=== PATIENT | male | born 1965 | race African-American/Black ===

== ENCOUNTER 2016-10-08 08:49 | Emergency (ER) | payer MEDICARE, SELFPAY ==
[2016-10-08] MEDS ORDERED: Ketorolac Tromethamine 60 MG/2 ML VIAL ONE (09:25)
--- NOTE | 2016-10-08 09:34 | ERRECORD ---
[facility] EMERGENCY RECORD HPI NECK PAIN (09:15 SHAN) CHIEF COMPLAINT: Patient presents for evaluation of neck injury, Patient presents for evaluation of patient with [facility] recurrent left neck pain. radiates down left arm. clearly related to neck pain and motion of neck. no chest component. pain is sharp and lightening like. has chf, cad, copd, gout. HISTORIAN: History provided by patient, History provided by patient's spouse. TIME COURSE: Gradual onset of symptoms. EXACERBATED BY: Patient's condition exacerbated by extension, Patient's condition exacerbated by flexion, Patient's condition exacerbated by movement of head, Patient's condition exacerbated by rotation. RELIEVED BY: Patient's condition relieved by nothing. ROS (09:17 SHAN) CONSTITUTIONAL: Negative constitutional review of systems, Historian denies chills, denies fever. EYES: Negative eye review of systems. ENT: Negative ears, nose, throat review of systems. CARDIOVASCULAR: Negative cardiovascular review of systems, Historian denies chest pain, denies palpitations. RESPIRATORY: Negative respiratory review of systems, Historian denies cough, denies shortness of breath. GI: Negative gastrointestinal review of systems, Historian denies abdominal pain, denies constipation, denies diarrhea. MUSCULOSKELETAL: Negative musculoskeletal review of systems. SKIN: Negative skin review of systems. NEUROLOGIC: Negative neurologic review of systems. ENDOCRINE: Negative endocrine review of systems. HEMO/LYMPHATIC: Normal hematologic/lymphatic system review. PSYCHIATRIC: Negative psychiatric review of systems. NOTES: All other ROS is negative except as listed in HPI. PAST MEDICAL HISTORY MEDICAL HISTORY: Flu vaccine up to date, Tetanus immunization up to date, Pneumococcal vaccine up to date, Past medical history includes cardiac history, coronary artery disease, congestive heart failure, Past medical history includes history of diabetes, Type II, on insulin, Past medical history includes genitourinary history, ESRD., Past medical history includes history of hyperlipidemia, high cholesterol, Past medical history includes history of hypertension, which has been treated, Past medical history includes pulmonary disease, chronic obstructive pulmonary disease, Past medical history includes cardiac history, congestive heart failure, Notes: Notes: CHRONIC BACK PAIN, Flu vaccine up to date, Tetanus immunization up to date, Pneumococcal vaccine up to date, Past medical history includes cardiac history, coronary artery disease, Past medical history includes history of diabetes, Type II, &a-1R&a+25V*p+0X*r0141T*c202B*c15G*c2P*p-0X&a-25V&a+1R Name: Giovany Heath : 1965 M50 MedRec: [id number] AcctNum: [id number] Prepared: SatOct 08, 2016 10:28 by Interface Page 1 of 4 pMD [facility] EMERGENCY RECORD Past medical history includes history of hyperlipidemia, high cholesterol, Past medical history includes history of hypertension, which has been treated, Notes: morbid obesity, Past medical history includes cardiac history, coronary artery disease, Past medical history includes history of diabetes, Type II, on insulin, Past medical history includes history of hyperlipidemia, high cholesterol, Past medical history includes history of hypertension, which has been treated, CHRONIC BACK PAIN, CHRONIC PAIN TO BILAT LEGS, Past medical history includes pulmonary disease, chronic obstructive pulmonary disease, Past medical history includes renal disease, end stage renal disease. (09:11 SFRE) MALE SURGICAL HISTORY: Patient has no surgical history. (09:11 SFRE) PSYCHIATRIC HISTORY: [. (09:11 SFRE) SOCIAL HISTORY: Patient denies alcohol use, Patient denies drug use, Patient is a former tobacco user, smoked cigarettes, Lives at home, with family. (09:11 SFRE) NOTES: I have reviewed and agree with the PMH/PSxH/FamHx/SocHx obtained by the nurse. (09:17 SHAN) KNOWN ALLERGIES No Known Allergies (Unconfirmed) No Known Drug Allergies: Source: Patient CURRENT MEDICATIONS No recorded medications VITAL SIGNS (08:59 SFRE) VITAL SIGNS: BP: 136/76, Pulse: 86, Resp: 18, Temp: 98.1 (Tympanic), Pain: 7 (Stabbing), O2 sat: 95 on Room Air, Time: 10/08/2016 08:59. PHYSICAL EXAM (09:17 SHAN) CONSTITUTIONAL: Vital signs reviewed, Patient appears non toxic, Patient alert and oriented to person, place and time, Pt is in no apparent distress. HEAD: Head exam included findings of head atraumatic, normocephalic. EYES: Eye exam included findings of eyelids normal to inspection, Pupils equally round and reactive to light, Extraocular muscles intact. ENT: ENT exam normal, Nose exam normal, no nasal deformity, no bleeding from nares, Pharynx exam normal, Mouth exam normal, mucous membranes moist. NECK: Neck exam included findings of normal range of motion, Trachea midline. RESPIRATORY CHEST: Respiratory and chest exam normal, Breath sounds clear, No wheezing, No rales, Chest exam included findings of chest movement symmetrical, Chest expansion equal. CARDIOVASCULAR: Cardiovascular assessment normal, Cardiovascular &a-1R&a+25V*p+0X*x9960J*c202B*c15G*c2P*p-0X&a-25V&a+1R Name: Giovany Heath : 1965 M50 MedRec: [id number] AcctNum: [id number] Prepared: SatOct 08, 2016 10:28 by Interface Page 2 of 4 pMD [facility] EMERGENCY RECORD exam included findings of heart rate regular rate and rhythm, Heart sounds normal. ABDOMEN MALE: Abdominal exam included findings of abdomen nontender, Bowel sounds normal, no mass, no pulsatile masses, no peritoneal signs, no rigidity, no guarding, no rebound. BACK: Back exam included findings of normal inspection, range of motion normal, no costovertebral angle tenderness. UPPER EXTREMITY: Upper extremity exam included findings of inspection normal, Range of motion normal. LOWER EXTREMITY: Lower extremity exam included findings of inspection normal, Range of motion normal. NEURO: Neuro exam findings include patient oriented to person, place and time, Speech normal, no focal motor deficits, no focal sensory deficits. neck pain with motion. SKIN: Skin exam included findings of skin warm, dry, and normal in color. LYMPHATIC: Lymphatic exam normal. PSYCHIATRIC: Psychiatric exam included findings of patient oriented to person place and time, Normal affect. MEDICATION ADMINISTRATION SUMMARY Drug Name: ketorolac intramuscular, Dose Ordered: 60 mg, Route: Intramuscular, Status: Given, Time: 09:28 10/08/2016, Detailed record available in Medication Service section. DOCTOR NOTES (09:20 SHAN) TEXT: Adult male with chf, cad, diabetes type 2, obesity, hypertension, gout, copd. From medication list is well treated medically. The pain today is recurrent and clearly a cervical radiculopathy. Discussed with him that ideally should have mri and this is not available acutely. He relates that he has had a shot and done well in the past. This pain does not feel at all like his angina and he has had two prior heart caths. Discussed options. PROBLEM LIST No recorded problems DIAGNOSIS (: [facility]) FINAL: PRIMARY: cervical radiculopathy. PRESCRIPTION (: [facility]) Tylenol-Codeine #3: TABLET : 300 mg-30 mg : ORAL : Quantity: 1 Unit: tab(s) Route: ORAL Schedule: every 4 hours prn Dispense: 30 Unit: tab(s) May substitute. Refills: No Refills . NOTES: may cause stomach upset (take with food), constipation, drousiness, and is somewhat habit forming No Refills. &a-1R&a+25V*p+0X*o6728H*c202B*c15G*c2P*p-0X&a-25V&a+1R Name: Giovany E : 1965 1 MedRec: [id number] AcctNum: [id number] Prepared: SatOct 08, 2016 10:28 by Interface Page 3 of 4 pMD [facility] EMERGENCY RECORD DISPOSITION PATIENT: Disposition Type: Discharge, Disposition: *Discharge Home. (: [place]) Patient left the department. (10: TRISTA) Morales: TRISTA=JESSEE Fraser, Daria GRIMES=MD Miguel, Keyur &a-1R&a+25V*p+0X*j1753E*c202B*c15G*c2P*p-0X&a-25V&a+1R Name: Giovany Heath : 1965 [facility] MedRec: [id number] AcctNum: [id number] Prepared: SatOct 08, 2016 10:28 by Interface Page 4 of 4 pMD [facility]
--- NOTE | 2016-10-08 09:38 | PICIS ---
[facility] EMERGENCY RECORD TRIAGE (SatOct 08, 2016 09:00 SFRE) TRIAGE NOTES: NECK PAIN SINCE SATURDAY AND OUT OF PAIN MEDICINE. (SatOct 08, 2016 09:00 SFRE) PATIENT: NAME: Giovany Heath, AGE: 50, GENDER: male, : Sun 1965, TIME OF GREET: SatOct 08, 2016 08:49, PREFERRED LANGUAGE: Telugu, ETHNICITY: Not or , FALL RISK: NO, ECODE BILLING MAP: [facility], SSN: [id number], Zip Code: [address], KG WEIGHT: [phone], PHONE: , , , PERSON ID: [id number], PCP: roney. (SatOct 08, 2016 09:00 SFRE) COMPLAINT: NECK & LT ARM PAIN. (SatOct 08, 2016 09:00 SFRE) ADMISSION: URGENCY: 4 Non Urgent, ADMISSION SOURCE: Home, TRANSPORT: Walk-in, BED: ED -05. (SatOct 08, 2016 09:00 SFRE) PROVIDERS: TRIAGE NURSE: Daria Fraser RN. (SatOct 08, 2016 09:00 SFRE) VITAL SIGNS: BP 136/76, Pulse 86, Resp 18, Temp 98.1, (Tympanic), Pain 7, (Stabbing), O2 Sat 95, on Room Air, Time 10/08/2016 08:59. (08:59 SFRE) PREVIOUS VISIT ALLERGIES: No Known Drug Allergies. (SatOct 08, 2016 09:00 SFRE) No Known Drug Allergies. (09:11 SFRE) KNOWN ALLERGIES No Known Allergies (Unconfirmed) No Known Drug Allergies: Source: Patient CURRENT MEDICATIONS No recorded medications VITAL SIGNS (08:59 SFRE) VITAL SIGNS: BP: 136/76, Pulse: 86, Resp: 18, Temp: 98.1 (Tympanic), Pain: 7 (Stabbing), O2 sat: 95 on Room Air, Time: 10/08/2016 08:59. NURSING ASSESSMENT: NECK (09:30 SFRE) CONSTITUTIONAL: Patient arrives ambulatory, Gait steady, History obtained from patient, Patient appears, in distress due to pain, Patient cooperative, Patient alert, Oriented to person, place and time, Skin warm, Skin dry, Skin normal in color, Mucous membranes pink, Mucous membranes moist, Patient is well-groomed, Patient complains of NECK PAIN. PAIN: stabbing pain, to the left lateral neck, RADIATES UP LEFT LATERAL SIDE OF HEAD AND DOWN LEFT ARM, Pain radiates, to the left arm, Onset of pain 10/06/2016, on a scale 0-10 patient rates pain as 7, DENIES INJURY, REPORTS HE HAS HAD IT BEFORE AND IS OUT OF HIS PAIN MEDICATION, Pain exacerbated by, ROM, Nothing has been tried to alleviate the pain. NECK: Neck assessment findings include trachea midline, Pain with range of motion. &a-1R&a+25V*p+0X*s1646X*c202B*c15G*c2P*p-0X&a-25V&a+1R Name: Giovany Heath : 1965 M50 MedRec: [id number] AcctNum: [id number] Prepared: SatOct 08, 2016 10:34 by Interface Page 1 of 5 pMD [facility] EMERGENCY RECORD RESPIRATORY/CHEST: Breath sounds clear, Respiratory assessment findings include respiratory effort easy, Respirations regular, Conversing normally, Neck and chest exam findings include trachea midline, Chest expansion equal, Chest movement symmetrical. SAFETY: Side rails up, Cart/Stretcher in lowest position, Family at bedside, Call light within reach, Hospital ID band on. NURSING PROCEDURE: DISCHARGE NOTE (10:04 SFRE) DISCHARGE: Patient discharged to home, ambulating with cane, family driving, accompanied by //partner, Summary of Care printed/ provided, Patient requested and was provided an electronic copy of Discharge Instructions, Discharge instructions given to patient, Simple or moderate discharge teaching performed, by JESSEE QUINN, F/U WITH PCP. RX DIRECTED. RETURN TO ED NEEDED FOR NEW/CONCERNING OR WORSENING SYMPTOMS., Prescriptions given and instructions on side effects given, Name of prescription(s) given: T3, Above person(s) verbalized understanding of discharge instructions and follow-up care. MEDICATION ADMINISTRATION SUMMARY Drug Name: ketorolac intramuscular, Dose Ordered: 60 mg, Route: Intramuscular, Status: Given, Time: 09:28 10/08/2016, Detailed record available in Medication Service section. MEDICATION SERVICE () ketorolac intramuscular: Order: ketorolac intramuscular (ketorolac tromethamine) - Dose: 60 mg : Intramuscular Schedule: Now Ordered by: Keyur Rivera MD Entered by: Keyur Rivera MD SatOct 08, 2016 09:20 Documented as given by: Daria Fraser RN SatOct 08, 2016 09:28 Patient, Medication, Dose, Route and Time verified prior to administration. IM medication, Amount given: 60MG, Medication administered to left hip, Patient appears Awake and alert- acceptable, Correct patient, time, route, dose and medication confirmed prior to administration, Patient advised of actions and side-effects prior to administration, Allergies confirmed and medications reviewed prior to administration, Patient in position of comfort, Side rails up, Cart in lowest position, Family at bedside. HPI NECK PAIN () CHIEF COMPLAINT: Patient presents for evaluation of neck injury, Patient presents for evaluation of patient with [facility] left neck pain. radiates down left arm. clearly related to neck pain and motion of neck. no chest component. pain is sharp and lightening like. has chf, cad, copd, gout. HISTORIAN: History provided by patient, History provided by patient's spouse. TIME COURSE: Gradual onset of &a-1R&a+25V*p+0X*c4210V*c202B*c15G*c2P*p-0X&a-25V&a+1R Name: Giovany Heath : 1965 M50 MedRec: [id number] AcctNum: [id number] Prepared: SatOct 08, 2016 10:34 by Interface Page 2 of 5 pMD [facility] EMERGENCY RECORD symptoms. EXACERBATED BY: Patient's condition exacerbated by extension, Patient's condition exacerbated by flexion, Patient's condition exacerbated by movement of head, Patient's condition exacerbated by rotation. RELIEVED BY: Patient's condition relieved by nothing. ROS (: [facility]) CONSTITUTIONAL: Negative constitutional review of systems, Historian denies chills, denies fever. EYES: Negative eye review of systems. ENT: Negative ears, nose, throat review of systems. CARDIOVASCULAR: Negative cardiovascular review of systems, Historian denies chest pain, denies palpitations. RESPIRATORY: Negative respiratory review of systems, Historian denies cough, denies shortness of breath. GI: Negative gastrointestinal review of systems, Historian denies abdominal pain, denies constipation, denies diarrhea. MUSCULOSKELETAL: Negative musculoskeletal review of systems. SKIN: Negative skin review of systems. NEUROLOGIC: Negative neurologic review of systems. ENDOCRINE: Negative endocrine review of systems. HEMO/LYMPHATIC: Normal hematologic/lymphatic system review. PSYCHIATRIC: Negative psychiatric review of systems. NOTES: All other ROS is negative except as listed in HPI. PAST MEDICAL HISTORY MEDICAL HISTORY: Flu vaccine up to date, Tetanus immunization up to date, Pneumococcal vaccine up to date, Past medical history includes cardiac history, coronary artery disease, congestive heart failure, Past medical history includes history of diabetes, Type II, on insulin, Past medical history includes genitourinary history, ESRD., Past medical history includes history of hyperlipidemia, high cholesterol, Past medical history includes history of hypertension, which has been treated, Past medical history includes pulmonary disease, chronic obstructive pulmonary disease, Past medical history includes cardiac history, congestive heart failure, Notes: Notes: CHRONIC BACK PAIN, Flu vaccine up to date, Tetanus immunization up to date, Pneumococcal vaccine up to date, Past medical history includes cardiac history, coronary artery disease, Past medical history includes history of diabetes, Type II, Past medical history includes history of hyperlipidemia, high cholesterol, Past medical history includes history of hypertension, which has been treated, Notes: morbid obesity, Past medical history includes cardiac history, coronary artery disease, Past medical history includes history of diabetes, Type II, on insulin, Past medical history includes history of hyperlipidemia, high cholesterol, Past medical history includes history of hypertension, which has been treated, CHRONIC BACK PAIN, CHRONIC PAIN TO BILAT LEGS, Past medical &a-1R&a+25V*p+0X*q8069O*c202B*c15G*c2P*p-0X&a-25V&a+1R Name: Giovany Heath : 1965 M50 MedRec: [id number] AcctNum: [id number] Prepared: SatOct 08, 2016 10:34 by Interface Page 3 of 5 pMD [facility] EMERGENCY RECORD history includes pulmonary disease, chronic obstructive pulmonary disease, Past medical history includes renal disease, end stage renal disease. (09:11 SFRE) MALE SURGICAL HISTORY: Patient has no surgical history. (09:11 SFRE) PSYCHIATRIC HISTORY: [. (09:11 SFRE) SOCIAL HISTORY: Patient denies alcohol use, Patient denies drug use, Patient is a former tobacco user, smoked cigarettes, Lives at home, with family. (09:11 SFRE) NOTES: I have reviewed and agree with the PMH/PSxH/FamHx/SocHx obtained by the nurse. (:17 SHAN) PHYSICAL EXAM (:17 SHAN) CONSTITUTIONAL: Vital signs reviewed, Patient appears non toxic, Patient alert and oriented to person, place and time, Pt is in no apparent distress. HEAD: Head exam included findings of head atraumatic, normocephalic. EYES: Eye exam included findings of eyelids normal to inspection, Pupils equally round and reactive to light, Extraocular muscles intact. ENT: ENT exam normal, Nose exam normal, no nasal deformity, no bleeding from nares, Pharynx exam normal, Mouth exam normal, mucous membranes moist. NECK: Neck exam included findings of normal range of motion, Trachea midline. RESPIRATORY CHEST: Respiratory and chest exam normal, Breath sounds clear, No wheezing, No rales, Chest exam included findings of chest movement symmetrical, Chest expansion equal. CARDIOVASCULAR: Cardiovascular assessment normal, Cardiovascular exam included findings of heart rate regular rate and rhythm, Heart sounds normal. ABDOMEN MALE: Abdominal exam included findings of abdomen nontender, Bowel sounds normal, no mass, no pulsatile masses, no peritoneal signs, no rigidity, no guarding, no rebound. BACK: Back exam included findings of normal inspection, range of motion normal, no costovertebral angle tenderness. UPPER EXTREMITY: Upper extremity exam included findings of inspection normal, Range of motion normal. LOWER EXTREMITY: Lower extremity exam included findings of inspection normal, Range of motion normal. NEURO: Neuro exam findings include patient oriented to person, place and time, Speech normal, no focal motor deficits, no focal sensory deficits. neck pain with motion. SKIN: Skin exam included findings of skin warm, dry, and normal in color. LYMPHATIC: Lymphatic exam normal. PSYCHIATRIC: Psychiatric exam included findings of patient oriented to person place and time, Normal affect. &a-1R&a+25V*p+0X*t8766H*c202B*c15G*c2P*p-0X&a-25V&a+1R Name: Giovany Heath Cindy : 1965 M50 MedRec: [id number] AcctNum: [id number] Prepared: SatOct 08, 2016 10:34 by Interface Page 4 of 5 pMD [facility] EMERGENCY RECORD EVENTS TRANSFER: Triage to Emergency Main ED -05. (SatOct 08, 2016 09:00 SFRE) Removed from Emergency Main ED -05. (10: SFRE) DOCTOR NOTES (:) TEXT: Adult male with chf, cad, diabetes type 2, obesity, hypertension, gout, copd. From medication list is well treated medically. The pain today is recurrent and clearly a cervical radiculopathy. Discussed with him that ideally should have mri and this is not available acutely. He relates that he has had a shot and done well in the past. This pain does not feel at all like his angina and he has had two prior heart caths. Discussed options. PROBLEM LIST No recorded problems DIAGNOSIS (:) FINAL: PRIMARY: cervical radiculopathy. DISPOSITION PATIENT: Disposition Type: Discharge, Disposition: *Discharge Home. (:) Patient left the department. (: SFRE) INSTRUCTION (:) DISCHARGE: CERVICAL RADICULOPATHY. SPECIAL: Pain pill sparingly if needed Rest, followup with regular provider in a few days. PRESCRIPTION (:) Tylenol-Codeine #3: TABLET : 300 mg-30 mg : ORAL : Quantity: 1 Unit: tab(s) Route: ORAL Schedule: every 4 hours prn Dispense: 30 Unit: tab(s) May substitute. Refills: No Refills . NOTES: may cause stomach upset (take with food), constipation, drousiness, and is somewhat habit forming No Refills. IMAGING *DISCHDARGE INSTRUCTIONS RECEIPT: Image captured from scanner. (10:00 [facility] *SUPPLY CHARGE SHEET: Image captured from scanner. (: [facility]) ADMIN (:) DIGITAL SIGNATURE: MD Rivera Stanley. Morales: TRISTA=JESSEE Fraser, Daria GRIMES=MD Rivera Stanley &a-1R&a+25V*p+0X*v3754J*c202B*c15G*c2P*p-0X&a-25V&a+1R Name: Giovany Heath : 1965 M50 MedRec: [id number] AcctNum: [id number] Prepared: Alejandro Oct 08, 2016 10:34 by Interface Page 5 of 5 pMD [facility]
== END 2016-10-08 09:45 | disposition home or self-care (01) ==
LOC: MADERS 08:49
DX: M54.12 Radiculopathy, cervical region (principal); I13.2 Hypertensive heart and chronic kidney disease with heart failure and with stage 5 chronic kidney disease, or end stage renal disease; N18.6 End stage renal disease; I50.9 Heart failure, unspecified; I25.10 Atherosclerotic heart disease of native coronary artery without angina pectoris; E11.9 Type 2 diabetes mellitus without complications; E78.5 Hyperlipidemia, unspecified; E78.00 Pure hypercholesterolemia, unspecified; J44.9 Chronic obstructive pulmonary disease, unspecified; Z87.891 Personal history of nicotine dependence; Z79.4 Long term (current) use of insulin
CPT/HCPCS: 96372; J1885

== ENCOUNTER 2016-11-21 00:09 | Emergency (ER) | payer MEDICARE, SELFPAY ==
[2016-11-21] MEDS ORDERED: Diazepam 5 MG TAB ONE (00:58)
[2016-11-21] MEDS ORDERED: Gabapentin 100 MG CAP ONE (00:59)
[2016-11-21] MEDS ORDERED: Acetaminophen 500 MG TAB ONE (00:59)
[2016-11-21] MEDS ORDERED: Dexamethasone 4 MG TAB ONE (00:59)
== END 2016-11-21 01:25 | disposition home or self-care (01) ==
LOC: MADERS 00:09
DX: M62.830 Muscle spasm of back (principal); I25.10 Atherosclerotic heart disease of native coronary artery without angina pectoris; E11.9 Type 2 diabetes mellitus without complications; I13.2 Hypertensive heart and chronic kidney disease with heart failure and with stage 5 chronic kidney disease, or end stage renal disease; N18.6 End stage renal disease; I50.9 Heart failure, unspecified; E78.5 Hyperlipidemia, unspecified; E78.00 Pure hypercholesterolemia, unspecified; J44.9 Chronic obstructive pulmonary disease, unspecified; Z87.891 Personal history of nicotine dependence; Z79.2 Long term (current) use of antibiotics; Z79.82 Long term (current) use of aspirin; Z79.899 Other long term (current) drug therapy; Z79.4 Long term (current) use of insulin
CPT/HCPCS: 99283; J8540

== ENCOUNTER 2016-12-25 17:37 | Emergency (ER) | payer MEDICARE ==
[~2016-12-25 17:37] MED LIST: Sodium Chloride 0.9% 100 ML BAG ONE
[2016-12-25] MEDS ORDERED: Acetaminophen/Codeine 30-300mg Tablet ONE (17:59)
[2016-12-25] MEDS ORDERED: methylPREDNISolone Sod Succ/PF 125 MG/2 ML VIAL ONE (18:17)
[2016-12-25] MEDS ORDERED: Piperacillin/Tazobactam 3.375 GM VIAL ONE (18:17)
[2016-12-25 18:20] LABS: #Basophils 0.1 thou/uL (0.0-0.2); #Lymphocytes 1.4 thou/uL (1.20-3.40); #Monocytes 1.1 thou/uL (0.11-0.59); #Neutrophils 7.6 thou/uL (1.40-6.50); %Basophils 0.5 % (0.0-1.0); %Monocytes 10.4 % (0.0-10.0); %Neutrophils 75.1 % (42.0-75.0); Hemoglobin 10.4 g/dL (14.0-18.0); Mean Corpuscular HGB CONC 32.9 g/dL (32.0-36.0); Mean Corpuscular Hemoglobin 30.7 pg (27.0-31.0); Mean Corpuscular Volume 93.5 fl (80.0-94.0); Mean Platelet Volume 6.7 fL (7.4-10.4); Platelet Count 174 thou/uL (130-400); RBC Distribution Width 13.6 % (11.5-14.5); Red Blood Cell (RBC) Count 3.37 mill/uL (4.70-6.10); White Blood Cell (WBC) Count 10.1 thou/uL (4.8-10.8)
[2016-12-25] MEDS ORDERED: Sterile Water 10 ML ONE (18:35)
[2016-12-25 18:37] LABS: ALT (SGPT) 29 U/L (0-55); AST (SGOT) 27 U/L (5-34); Alkaline Phosphatase 87 U/L (40-150); Anion Gap 15 mmol/L (10-20); BUN (Urea Nitrogen) 42 mg/dL (8.4-25.7); Bilirubin, Total 1.1 mg/dL (0.2-1.2); Calc. Creatinine Clearance 0 mL/min (70-130); Calcium 8.7 mg/dL (7.8-10.44); Carbon Dioxide 29 mmol/L (22-29); Chloride 99 mmol/L (98-107); Estimated GFR-MDRD 33; Globulin 3.4 g/dL (2.4-3.5); Glucose 151 mg/dL (70-105); Potassium 4.1 mmol/L (3.5-5.1); Protein, Total 6.4 g/dL (6.0-8.3); Sodium 139 mmol/L (136-145)
[2016-12-25] MEDS ORDERED: Ibuprofen 200 MG TAB ONE (19:32)
== END 2016-12-25 21:29 | disposition home or self-care (01) ==
LOC: MADERS 17:37
DX: M79.89 Other specified soft tissue disorders (principal); I25.10 Atherosclerotic heart disease of native coronary artery without angina pectoris; E11.9 Type 2 diabetes mellitus without complications; E78.5 Hyperlipidemia, unspecified; E78.00 Pure hypercholesterolemia, unspecified; J44.9 Chronic obstructive pulmonary disease, unspecified; I13.2 Hypertensive heart and chronic kidney disease with heart failure and with stage 5 chronic kidney disease, or end stage renal disease; N18.6 End stage renal disease; I50.9 Heart failure, unspecified; Z87.891 Personal history of nicotine dependence; Z79.899 Other long term (current) drug therapy; Z79.82 Long term (current) use of aspirin; Z79.4 Long term (current) use of insulin
CPT/HCPCS: 36415; 36416; 80053; 85025; 87040; 96365; 96367; 96375; A4216; J2543; J2930; J3370; J7050

== ENCOUNTER 2017-01-28 07:06 | Outpatient (CLI) | payer MEDICARE ==
[2017-01-28 08:23] LABS: Hemoglobin A1c 5.4 % (4.0-6.0)
[2017-01-28 11:10] LABS: ALT (SGPT) 30 U/L (0-55); AST (SGOT) 29 U/L (5-34); Alkaline Phosphatase 109 U/L (40-150); Anion Gap 14 mmol/L (10-20); BUN (Urea Nitrogen) 19 mg/dL (8.4-25.7); Bilirubin, Total 0.5 mg/dL (0.2-1.2); Calc. Creatinine Clearance 0 mL/min (70-130); Calcium 8.6 mg/dL (7.8-10.44); Carbon Dioxide 28 mmol/L (22-29); Cardiac Risk 3.9 (Less than 4.5); Chloride 106 mmol/L (98-107); Cholesterol 201 mg/dL (< 200 Desired); Estimated GFR-MDRD 46; Globulin 3.1 g/dL (2.4-3.5); Glucose 60 mg/dL (70-105); HDL Cholesterol 52 mg/dL (>60 Neg Risk); LDL Cholesterol, Calculated 125 mg/dL; Potassium 3.8 mmol/L (3.5-5.1); Protein, Total 6.1 g/dL (6.0-8.3); Sodium 144 mmol/L (136-145); Triglycerides 118 mg/dL (Less than 150)
== END 2017-01-28 07:07 ==
LOC: MADLABBHPM 07:06
PROVIDERS: ATTEND Family Medicine
DX: E78.2 Mixed hyperlipidemia (principal); I50.9 Heart failure, unspecified; E11.65 Type 2 diabetes mellitus with hyperglycemia
CPT/HCPCS: 36415; 80053; 80061; 83036

== ENCOUNTER 2017-03-27 08:34 | Outpatient (CLI) | payer MEDICARE ==
[2017-03-27 09:31] LABS: Anion Gap 17 mmol/L (10-20); BUN (Urea Nitrogen) 47 mg/dL (8.4-25.7); Calc. Creatinine Clearance 0 mL/min (70-130); Calcium 8.5 mg/dL (7.8-10.44); Carbon Dioxide 28 mmol/L (22-29); Chloride 102 mmol/L (98-107); Estimated GFR-MDRD 34; Glucose 124 mg/dL (70-105); Potassium 3.5 mmol/L (3.5-5.1); Sodium 143 mmol/L (136-145)
== END 2017-03-27 08:35 | disposition home or self-care (01) ==
LOC: MADLAB 08:34
PROVIDERS: ATTEND Internal Medicine Nephrology
DX: I13.0 Hypertensive heart and chronic kidney disease with heart failure and stage 1 through stage 4 chronic kidney disease, or unspecified chronic kidney disease (principal); I50.32 Chronic diastolic (congestive) heart failure; N18.3 Chronic kidney disease, stage 3 (moderate); R60.0 Localized edema
CPT/HCPCS: 36415; 80048

== ENCOUNTER 2017-05-14 09:44 | Outpatient (CLI) | payer MEDICARE ==
[2017-05-14 11:03] LABS: Hemoglobin A1c 6.2 % (4.0-6.0)
[2017-05-14 11:04] LABS: ALT (SGPT) 78 U/L (8-55); AST (SGOT) 82 U/L (5-34); Albumin 3.2 g/dL (3.5-5.0); Alkaline Phosphatase 110 U/L (40-150); Anion Gap 15 mmol/L (10-20); BUN (Urea Nitrogen) 47 mg/dL (8.4-25.7); Bilirubin, Total 0.4 mg/dL (0.2-1.2); Calc. Creatinine Clearance 0 mL/min (70-130); Calcium 8.6 mg/dL (7.8-10.44); Carbon Dioxide 30 mmol/L (22-29); Cardiac Risk 5.1 (Less than 4.5); Chloride 98 mmol/L (98-107); Cholesterol 200 mg/dl (< 200 Desired); Estimated GFR-MDRD 24; Globulin 3.2 g/dL (2.4-3.5); Glucose 172 mg/dL (70-105); HDL Cholesterol 39 mg/dL (>60 Neg Risk); LDL Cholesterol, Calculated 128 mg/dL; Magnesium 1.5 mg/dL (1.6-2.6); Potassium 3.5 mmol/L (3.5-5.1); Protein, Total 6.4 g/dL (6.0-8.3); Sodium 139 mmol/L (136-145); Triglycerides 164 mg/dL (Less than 150)
[2017-05-14 11:11] LABS: #Basophils 0.1 thou/uL (0.0-0.2); #Eosinphils 0.1 thou/uL (0.0-0.7); #Lymphocytes 1.7 thou/uL (1.20-3.40); #Monocytes 0.5 thou/uL (0.11-0.59); #Neutrophils 4.4 thou/uL (1.40-6.50); %Eosinophils 1.1 % (0.0-10.0); %Lymphocytes 25.2 % (21.0-51.0); %Monocytes 7.9 % (0.0-10.0); %Neutrophils 64.8 % (42.0-75.0); Mean Corpuscular HGB CONC 33.3 g/dL (32.0-36.0); Mean Corpuscular Hemoglobin 31.9 pg (27.0-31.0); Mean Corpuscular Volume 95.9 fl (80.0-94.0); Mean Platelet Volume 8.3 fL (7.4-10.4); Platelet Count 207 thou/uL (130-400); RBC Distribution Width 13.7 % (11.5-14.5); Red Blood Cell (RBC) Count 3.46 mill/uL (4.70-6.10); White Blood Cell (WBC) Count 6.8 thou/uL (4.8-10.8)
[2017-05-14 11:51] LABS: Bacteria/HPF 1+ HPF (None Seen); Bilirubin Negative (Negative); Blood, Urine Moderate (Negative); Clarity Hazy (Clear); Glucose, Urine (Dipstick) 100 mg/dL (Negative); Leukocyte Negative (Negative); Nitrite Negative (Negative); Protein, Urine (Dipstick) > or equal to 300 mg/dL (Neg-Trace); RBC/HPF 0-3 HPF (0-3); Squamous Epithelial 0-3 HPF (0-3); Urobilinogen 0.2 mg/dL (0.2-1.0); WBC/HPF 0-3 HPF (0-3); pH, Urine 5.5 (5.0-9.0)
[2017-05-14 18:44] LABS: Creatinine, Urine 48.88 mg/dL (63-166)
== END 2017-05-14 09:45 | disposition home or self-care (01) ==
LOC: MADLABBHPM 09:44
PROVIDERS: ATTEND Internal Medicine Nephrology
DX: I12.9 Hypertensive chronic kidney disease with stage 1 through stage 4 chronic kidney disease, or unspecified chronic kidney disease (principal); E11.65 Type 2 diabetes mellitus with hyperglycemia; E11.22 Type 2 diabetes mellitus with diabetic chronic kidney disease; N18.3 Chronic kidney disease, stage 3 (moderate); R80.9 Proteinuria, unspecified; R60.9 Edema, unspecified; E78.2 Mixed hyperlipidemia; N39.498 Other specified urinary incontinence
CPT/HCPCS: 36415; 80053; 80061; 81001; 82570; 83036; 83735; 84153; 84156; 85025

== ENCOUNTER 2017-05-28 07:18 | Outpatient (CLI) | payer MEDICARE ==
[2017-05-28 07:54] LABS: Anion Gap 15 mmol/L (10-20); BUN (Urea Nitrogen) 44 mg/dL (8.4-25.7); Calc. Creatinine Clearance 0 mL/min (70-130); Calcium 8.7 mg/dL (7.8-10.44); Carbon Dioxide 30 mmol/L (22-29); Chloride 100 mmol/L (98-107); Estimated GFR-MDRD 25; Glucose 165 mg/dL (70-105); Potassium 3.6 mmol/L (3.5-5.1); Sodium 141 mmol/L (136-145)
== END 2017-05-28 07:19 | disposition home or self-care (01) ==
LOC: MADLAB 07:18
PROVIDERS: ATTEND Internal Medicine Nephrology
DX: N18.3 Chronic kidney disease, stage 3 (moderate) (principal)
CPT/HCPCS: 36415; 80048

== ENCOUNTER 2017-11-09 19:03 | Emergency (ER) | payer MEDICARE, SELFPAY ==
--- NOTE | 2017-11-09 20:28 | RAD ---
RIGHT TIBIA AND FIBULA TWO VIEWS: 11/09/17 HISTORY: Leg pain status post fall. There are no signs of fracture or dislocation. IMPRESSION: Negative right tib/fib. POS: [facility]
[2017-11-09 20:48] LABS: #Lymphocytes 1.1 thou/uL (1.20-3.40); #Monocytes 0.5 thou/uL (0.11-0.59); %Basophils 0.6 % (0.0-1.0); %Eosinophils 0.1 % (0.0-10.0); %Lymphocytes 13.9 % (21.0-51.0); %Monocytes 6.4 % (0.0-10.0); Mean Corpuscular HGB CONC 32.6 g/dL (32.0-36.0); Mean Platelet Volume 7.9 fL (7.4-10.4); Platelet Count 189 thou/uL (130-400); RBC Distribution Width 13.9 % (11.5-14.5); Red Blood Cell (RBC) Count 2.81 mill/uL (4.70-6.10); White Blood Cell (WBC) Count 7.6 thou/uL (4.8-10.8)
[2017-11-09 20:52] LABS: D-Dimer Test 2.34 *mcg/mL (0.27-0.43)
[2017-11-09 20:58] LABS: Anion Gap 17 mmol/L (10-20); BUN (Urea Nitrogen) 58 mg/dL (8.4-25.7); Calc. Creatinine Clearance 0 mL/min (70-130); Calcium 8.2 mg/dL (7.8-10.44); Carbon Dioxide 27 mmol/L (22-29); Chloride 99 mmol/L (98-107); Estimated GFR-MDRD 23; Glucose 409 mg/dL (70-105); Potassium 3.9 mmol/L (3.5-5.1); Sodium 139 mmol/L (136-145)
[2017-11-09] MEDS ORDERED: Insulin Regular 300 UNITS/3 ML VIAL ONE (21:04)
[2017-11-09] MEDS ORDERED: traMADol HCl 50 MG TAB ONE (21:04)
== END 2017-11-09 21:34 | disposition short-term general hospital (02) ==
LOC: MADERS 19:03
DX: S80.01XA Contusion of right knee, initial encounter (principal); E11.22 Type 2 diabetes mellitus with diabetic chronic kidney disease; N18.6 End stage renal disease; D63.1 Anemia in chronic kidney disease; J44.9 Chronic obstructive pulmonary disease, unspecified; E11.65 Type 2 diabetes mellitus with hyperglycemia; I13.2 Hypertensive heart and chronic kidney disease with heart failure and with stage 5 chronic kidney disease, or end stage renal disease; I50.9 Heart failure, unspecified; I25.10 Atherosclerotic heart disease of native coronary artery without angina pectoris; G89.29 Other chronic pain; M54.9 Dorsalgia, unspecified; Z87.891 Personal history of nicotine dependence; Z79.84 Long term (current) use of oral hypoglycemic drugs; Z79.82 Long term (current) use of aspirin; W01.198A Fall on same level from slipping, tripping and stumbling with subsequent striking against other object, initial encounter; Y93.E1 Activity, personal bathing and showering
CPT/HCPCS: 36415; 36416; 80048; 85025; 85379; 85610; 85730; J1815

== ENCOUNTER 2018-02-22 20:13 | Emergency (ER) | payer MEDICARE | END 2018-02-22 21:26 | disposition home or self-care (01) | LOC: MADERS 20:13 | DX: R60.0 Localized edema (principal); I13.2 Hypertensive heart and chronic kidney disease with heart failure and with stage 5 chronic kidney disease, or end stage renal disease; E11.22 Type 2 diabetes mellitus with diabetic chronic kidney disease; N18.6 End stage renal disease; I50.9 Heart failure, unspecified; I25.10 Atherosclerotic heart disease of native coronary artery without angina pectoris; E78.5 Hyperlipidemia, unspecified; J44.9 Chronic obstructive pulmonary disease, unspecified; Z87.891 Personal history of nicotine dependence; Z79.84 Long term (current) use of oral hypoglycemic drugs; Z79.899 Other long term (current) drug therapy; Z79.51 Long term (current) use of inhaled steroids; Z79.82 Long term (current) use of aspirin | CPT/HCPCS: 99284 ==

== ENCOUNTER 2018-03-21 07:34 | Outpatient (CLI) | payer MEDICARE ==
[2018-03-21 09:02] LABS: Anion Gap 20 mmol/L (10-20); BUN (Urea Nitrogen) 49 mg/dL (8.4-25.7); Calc. Creatinine Clearance 0 mL/min (70-130); Calcium 8.5 mg/dL (7.8-10.44); Carbon Dioxide 27 mmol/L (22-29); Chloride 101 mmol/L (98-107); Estimated GFR-MDRD 20; Glucose 100 mg/dL (70-105); Potassium 3.9 mmol/L (3.5-5.1); Sodium 144 mmol/L (136-145)
== END 2018-03-21 07:35 | disposition home or self-care (01) ==
LOC: MADLAB 07:34
PROVIDERS: ATTEND Internal Medicine Nephrology
DX: N18.4 Chronic kidney disease, stage 4 (severe) (principal)
CPT/HCPCS: 36415; 80048

== ENCOUNTER 2018-04-07 13:04 | Emergency (ER) | payer MEDICARE ==
[2018-04-07] MEDS ORDERED: HYDROcodone/Acetaminophen 10/325 mg Tablet ONE (13:38)
[2018-04-07] MEDS ORDERED: predniSONE 20 MG TAB ONE (13:38)
== END 2018-04-07 13:45 | disposition home or self-care (01) ==
LOC: MADERS 13:04
DX: M62.838 Other muscle spasm (principal); I25.10 Atherosclerotic heart disease of native coronary artery without angina pectoris; I13.2 Hypertensive heart and chronic kidney disease with heart failure and with stage 5 chronic kidney disease, or end stage renal disease; I50.9 Heart failure, unspecified; E11.9 Type 2 diabetes mellitus without complications; E78.5 Hyperlipidemia, unspecified; E11.22 Type 2 diabetes mellitus with diabetic chronic kidney disease; J44.9 Chronic obstructive pulmonary disease, unspecified; Z87.891 Personal history of nicotine dependence
CPT/HCPCS: 99283; J7506

== ENCOUNTER 2018-04-14 16:28 | Outpatient (CLI) | payer MEDICARE ==
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
== END 2018-04-14 16:29 | disposition home or self-care (01) ==
LOC: MADRAD 16:28
PROVIDERS: ATTEND Family Medicine
DX: E11.65 Type 2 diabetes mellitus with hyperglycemia (principal); R07.81 Pleurodynia; M54.2 Cervicalgia; V89.2XXA Person injured in unspecified motor-vehicle accident, traffic, initial encounter; Z98.890 Other specified postprocedural states
CPT/HCPCS: 72050

== ENCOUNTER 2018-04-24 08:24 | Emergency (ER) | payer MEDICARE ==
[2018-04-24 09:09] LABS: #Eosinphils 0.1 thou/uL (0.0-0.7); #Lymphocytes 1.7 thou/uL (1.20-3.40); #Monocytes 0.6 thou/uL (0.11-0.59); %Basophils 0.7 % (0.0-1.0); %Lymphocytes 22.3 % (21.0-51.0); %Monocytes 8.2 % (0.0-10.0); %Neutrophils 66.9 % (42.0-75.0); Hemoglobin 9.2 g/dL (14.0-18.0); Mean Corpuscular Hemoglobin 30.1 pg (27.0-31.0); Mean Corpuscular Volume 94.2 fL (78.0-98.0); Mean Platelet Volume 5.3 fL (7.4-10.4); Platelet Count 202 thou/uL (130-400); RBC Distribution Width 13.4 % (11.5-14.5); Red Blood Cell (RBC) Count 3.07 mill/uL (4.70-6.10); White Blood Cell (WBC) Count 7.4 thou/uL (4.8-10.8)
[2018-04-24 09:29] LABS: ALT (SGPT) 33 U/L (8-55); AST (SGOT) 30 U/L (5-34); Albumin 3.1 g/dL (3.5-5.0); Alkaline Phosphatase 104 U/L (40-150); Anion Gap 15 mmol/L (10-20); BUN (Urea Nitrogen) 50 mg/dL (8.4-25.7); Bilirubin, Total 0.3 mg/dL (0.2-1.2); Calc. Creatinine Clearance 0 mL/min (70-130); Calcium 8.4 mg/dL (7.8-10.44); Carbon Dioxide 30 mmol/L (22-29); Chloride 99 mmol/L (98-107); Estimated GFR-MDRD 18; Globulin 3.2 g/dL (2.4-3.5); Glucose 234 mg/dL (70-105); Lipase 89 U/L (8-78); Potassium 4.1 mmol/L (3.5-5.1); Protein, Total 6.3 g/dL (6.0-8.3); Sodium 140 mmol/L (136-145)
[2018-04-24 09:48] LABS: Bilirubin Negative (Negative); Blood, Urine Trace (Negative); Clarity Clear (Clear); Glucose, Urine (Dipstick) 100 mg/dL (Negative); Leukocyte Negative (Negative); Nitrite Negative (Negative); Protein, Urine (Dipstick) > or equal to 300 mg/dL (Neg-Trace); Urobilinogen 0.2 mg/dL (0.2-1.0)
[2018-04-24 09:51] LABS: Bacteria/HPF Rare-Few HPF (None Seen); RBC/HPF 0-3 HPF (0-3); Squamous Epithelial 0-3 HPF (0-3); WBC/HPF 0-3 HPF (0-3)
== END 2018-04-24 10:18 | disposition home or self-care (01) ==
LOC: MADERS 08:24
DX: S16.1XXA Strain of muscle, fascia and tendon at neck level, initial encounter (principal); R14.0 Abdominal distension (gaseous); I13.2 Hypertensive heart and chronic kidney disease with heart failure and with stage 5 chronic kidney disease, or end stage renal disease; I50.9 Heart failure, unspecified; N18.6 End stage renal disease; J44.9 Chronic obstructive pulmonary disease, unspecified; E78.5 Hyperlipidemia, unspecified; Z87.891 Personal history of nicotine dependence; V89.2XXA Person injured in unspecified motor-vehicle accident, traffic, initial encounter
CPT/HCPCS: 36416; 80053; 81003; 81015; 83690; 85025; 99284

== ENCOUNTER 2018-07-02 09:15 | Outpatient (CLI) | payer MEDICARE ==
[2018-07-02 14:25] LABS: Anion Gap 14 mmol/L (10-20); BUN (Urea Nitrogen) 57 mg/dL (8.4-25.7); Calc. Creatinine Clearance 0 mL/min (70-130); Calcium 7.5 mg/dL (7.8-10.44); Carbon Dioxide 25 mmol/L (22-29); Chloride 109 mmol/L (98-107); Estimated GFR-MDRD 16; Potassium 3.1 mmol/L (3.5-5.1); Sodium 145 mmol/L (136-145)
[2018-07-02 15:11] LABS: Glucose 57 mg/dL (70-105)
== END 2018-07-02 09:16 | disposition home or self-care (01) ==
LOC: MADLAB 09:15
PROVIDERS: ATTEND Internal Medicine Nephrology
DX: N18.4 Chronic kidney disease, stage 4 (severe) (principal)
CPT/HCPCS: 36415; 80048

== ENCOUNTER 2018-11-11 19:50 | Emergency (ER) | payer MEDICARE | END 2018-11-11 21:20 | disposition home or self-care (01) | LOC: MADERS 19:50 | DX: S16.1XXA Strain of muscle, fascia and tendon at neck level, initial encounter (principal); I25.10 Atherosclerotic heart disease of native coronary artery without angina pectoris; I13.2 Hypertensive heart and chronic kidney disease with heart failure and with stage 5 chronic kidney disease, or end stage renal disease; I50.9 Heart failure, unspecified; N18.6 End stage renal disease; E11.9 Type 2 diabetes mellitus without complications; E78.5 Hyperlipidemia, unspecified; J44.9 Chronic obstructive pulmonary disease, unspecified; Z87.891 Personal history of nicotine dependence; X58.XXXA Exposure to other specified factors, initial encounter | CPT/HCPCS: 99281 ==

== ENCOUNTER 2018-11-17 06:02 | Emergency (ER) | payer MEDICARE ==
[2018-11-17] MEDS ORDERED: Ondansetron ODT 4 MG TAB ONE ×2 (06:35→06:38)
[2018-11-17] MEDS ORDERED: Ibuprofen 800 MG TAB ONE (06:35)
== END 2018-11-17 06:44 | disposition home or self-care (01) ==
LOC: MADERS 06:02
DX: J10.1 Influenza due to other identified influenza virus with other respiratory manifestations (principal); I25.10 Atherosclerotic heart disease of native coronary artery without angina pectoris; I13.2 Hypertensive heart and chronic kidney disease with heart failure and with stage 5 chronic kidney disease, or end stage renal disease; I50.9 Heart failure, unspecified; N18.6 End stage renal disease; E78.5 Hyperlipidemia, unspecified; Z87.891 Personal history of nicotine dependence; Z79.899 Other long term (current) drug therapy; Z79.4 Long term (current) use of insulin; Z79.51 Long term (current) use of inhaled steroids
CPT/HCPCS: 99283; Q0162

== ENCOUNTER 2019-08-21 17:47 | Emergency (ER) | payer MEDICARE ==
[~2019-08-21 17:47] MED LIST changes: -Sodium Chloride 0.9% 100 ML BAG ONE; +Sodium Chloride 0.9% 500 ML BAG ONE
--- NOTE | 2019-08-21 18:58 | RAD ---
XR Chest Pa Lat STANDARD History: Cough Comparison: Radiograph November 2018 Findings: Lungs are clear. No pneumothorax or effusion. Cardiac silhouette and mediastinal contours a re within normal limits. No acute osseous abnormality. Bilateral subacromial spurs. Impression: No acute intrathoracic abnormality
[2019-08-21 19:15] LABS: #Basophils 0.1 thou/uL (0.0-0.2); #Eosinphils 0.1 thou/uL (0.0-0.7); #Lymphocytes 1.4 thou/uL (1.20-3.40); #Monocytes 0.6 thou/uL (0.11-0.59); #Neutrophils 5.2 thou/uL (1.40-6.50); %Basophils 1.9 % (0.0-1.0); %Eosinophils 1.1 % (0.0-10.0); %Lymphocytes 18.7 % (21.0-51.0); %Monocytes 7.9 % (0.0-10.0); %Neutrophils 70.5 % (42.0-75.0); Hemoglobin 12.6 g/dL (14.0-18.0); Mean Corpuscular HGB CONC 30.3 g/dL (32.0-36.0); Mean Corpuscular Hemoglobin 31.8 pg (27.0-31.0); Mean Corpuscular Volume 104.8 fL (78.0-98.0); Mean Platelet Volume 7.1 fL (7.4-10.4); Platelet Count 252 thou/uL (130-400); RBC Distribution Width 12.6 % (11.5-14.5); Red Blood Cell (RBC) Count 3.96 mill/uL (4.70-6.10); White Blood Cell (WBC) Count 7.4 thou/uL (4.8-10.8)
[2019-08-21 19:30] LABS: ALT (SGPT) 25 U/L (8-55); AST (SGOT) 31 U/L (5-34); Albumin 4.7 g/dL (3.5-5.0); Alkaline Phosphatase 84 U/L (40-110); Anion Gap 20 mmol/L (10-20); BUN (Urea Nitrogen) 14 mg/dL (8.4-25.7); Bilirubin, Total 0.6 mg/dL (0.2-1.2); Calc. Creatinine Clearance 0 mL/min (70-130); Calcium 9.7 mg/dL (7.8-10.44); Carbon Dioxide 34 mmol/L (22-29); Chloride 91 mmol/L (98-107); Estimated GFR-MDRD 13; Globulin 3.8 g/dL (2.4-3.5); Glucose 323 mg/dL (70-105); Potassium 4.2 mmol/L (3.5-5.1); Protein, Total 8.5 g/dL (6.0-8.3); Sodium 141 mmol/L (136-145)
[2019-08-21 19:54] LABS: CKMB 10.7 ng/mL (0-6.6)
[2019-08-21] MEDS ORDERED: Morphine 4 MG/ML VIAL ONE (20:48)
[2019-08-21] MEDS ORDERED: Ondansetron PF 4 MG/2 ML Vial ONE (20:49)
[2019-08-21] MEDS ORDERED: Aspirin Chewable 81 MG TAB ONE (20:49)
[2019-08-21] MEDS ORDERED: Azithromycin 250 MG TAB ONE (21:07)
[2019-08-21] MEDS ORDERED: predniSONE 20 MG TAB ONE (21:07)
== END 2019-08-21 21:33 | disposition left against medical advice (07) ==
LOC: MADERS 17:47
DX: J44.1 Chronic obstructive pulmonary disease with (acute) exacerbation (principal); J06.9 Acute upper respiratory infection, unspecified; I13.2 Hypertensive heart and chronic kidney disease with heart failure and with stage 5 chronic kidney disease, or end stage renal disease; I25.10 Atherosclerotic heart disease of native coronary artery without angina pectoris; I50.9 Heart failure, unspecified; E11.22 Type 2 diabetes mellitus with diabetic chronic kidney disease; N18.6 End stage renal disease; E78.5 Hyperlipidemia, unspecified; E78.00 Pure hypercholesterolemia, unspecified; J44.9 Chronic obstructive pulmonary disease, unspecified; Z87.891 Personal history of nicotine dependence; Z79.899 Other long term (current) drug therapy; Z79.4 Long term (current) use of insulin; Z99.2 Dependence on renal dialysis; Z79.82 Long term (current) use of aspirin; Z79.51 Long term (current) use of inhaled steroids
CPT/HCPCS: 71046; 80053; 82553; 83605; 83880; 84484; 85025; 87804; 93005; 96374; 96375; J2270; J2405; J7050; J7512; J7620

== ENCOUNTER 2019-10-07 14:12 | Outpatient (CLI) | payer MEDICARE ==
[2019-10-07 14:42] LABS: Anion Gap 20 mmol/L (10-20); BUN (Urea Nitrogen) 21 mg/dL (8.4-25.7); Calc. Creatinine Clearance 0 mL/min (70-130); Calcium 9.5 mg/dL (7.8-10.44); Carbon Dioxide 32 mmol/L (22-29); Chloride 90 mmol/L (98-107); Estimated GFR-MDRD 13; Glucose 282 mg/dL (70-105); Potassium 4.3 mmol/L (3.5-5.1); Sodium 138 mmol/L (136-145)
== END 2019-10-07 14:13 | disposition home or self-care (01) ==
LOC: MADLAB 14:12
PROVIDERS: ATTEND Ophthalmology
DX: H25.811 Combined forms of age-related cataract, right eye (principal)
CPT/HCPCS: 36415; 80048

== ENCOUNTER 2019-10-14 16:57 | Outpatient (CLI) | payer MEDICARE ==
[2019-10-14 17:27] LABS: Anion Gap 21 mmol/L (10-20); BUN (Urea Nitrogen) 19 mg/dL (8.4-25.7); Calc. Creatinine Clearance 0 mL/min (70-130); Calcium 9.4 mg/dL (7.8-10.44); Carbon Dioxide 31 mmol/L (22-29); Chloride 91 mmol/L (98-107); Estimated GFR-MDRD 14; Glucose 260 mg/dL (70-105); Potassium 4.2 mmol/L (3.5-5.1); Sodium 139 mmol/L (136-145)
== END 2019-10-14 16:58 | disposition home or self-care (01) ==
LOC: MADLAB 16:57
PROVIDERS: ATTEND Ophthalmology
DX: H25.812 Combined forms of age-related cataract, left eye (principal)
CPT/HCPCS: 36415; 80048

== ENCOUNTER 2019-10-26 18:43 | Emergency (ER) | payer MEDICARE ==
[~2019-10-26 18:43] MED LIST changes: -Sodium Chloride 0.9% 500 ML BAG ONE; +Sterile Water Irrigation 1,000 ML BOT ONE
[2019-10-26 21:02] LABS: ALT (SGPT) 30 U/L (8-55); AST (SGOT) 27 U/L (5-34); Albumin 4.7 g/dL (3.5-5.0); Alkaline Phosphatase 90 U/L (40-110); Anion Gap 20 mmol/L (10-20); BUN (Urea Nitrogen) 26 mg/dL (8.4-25.7); Bilirubin, Total 0.5 mg/dL (0.2-1.2); Calc. Creatinine Clearance 0 mL/min (70-130); Calcium 9.2 mg/dL (7.8-10.44); Carbon Dioxide 35 mmol/L (22-29); Chloride 91 mmol/L (98-107); Estimated GFR-MDRD 10; Globulin 3.9 g/dL (2.4-3.5); Glucose 134 mg/dL (70-105); Potassium 4.8 mmol/L (3.5-5.1); Protein, Total 8.6 g/dL (6.0-8.3); Sodium 141 mmol/L (136-145)
[2019-10-26 21:04] LABS: Band 5 % (5-11); Hemoglobin 12.9 g/dL (14.0-18.0); Lymphocytes 14 % (21-51); MDiff Complete? YES; Macrocytosis MODERATE=16-30 cells (100X) (0-5/hpf); Mean Corpuscular HGB CONC 30.7 g/dL (32.0-36.0); Mean Corpuscular Hemoglobin 32.4 pg (27.0-31.0); Mean Corpuscular Volume 105.3 fL (78.0-98.0); Mean Platelet Volume 6.7 fL (7.4-10.4); Monocytes 7 % (0-10); Neutrophil 74 % (42-75); Platelet Count 229 thou/uL (130-400); Platelet Morphology Comment Appears Adequate; Red Blood Cell (RBC) Count 3.98 mill/uL (4.70-6.10); White Blood Cell (WBC) Count 7.7 thou/uL (4.8-10.8)
--- NOTE | 2019-10-26 21:10 | RAD ---
TWO VIEW CHEST: History: Fever. Comparison: 08-24-19 FINDINGS: Lungs appear clear of infiltrate. Heart and mediastinum unremarkable. Osseous structures are unremark able. No significant change from prior exam. IMPRESSION: No acute findings. POS: [facility]
[2019-10-26 21:33] LABS: Bilirubin Small (Negative); Blood, Urine Small (Negative); Clarity Clear (Clear); Glucose, Urine (Dipstick) Negative (Negative); Leukocyte Negative (Negative); Nitrite Negative (Negative); Protein, Urine (Dipstick) > or equal to 300 mg/dL (Neg-Trace); Urobilinogen 0.2 mg/dL (Less than 2)
[2019-10-26 21:39] LABS: Bacteria/HPF Rare-Few HPF (None Seen); WBC/HPF 0-3 HPF (0-3)
[2019-10-26] MEDS ORDERED: Ibuprofen 600 MG TAB ONE (21:40)
[2019-10-26] MEDS ORDERED: Oseltamivir 75 MG CAP ONE (21:40)
[2019-10-26] MEDS ORDERED: Sodium Chloride 0.9% 100 ML ONE (22:38)
[2019-10-26] MEDS ORDERED: cefTRIAXone\\ROCEPHIN 2 GM VIAL ONE (22:38)
== END 2019-10-27 05:47 | disposition short-term general hospital (02) ==
LOC: MADERS 18:43
DX: A41.9 Sepsis, unspecified organism (principal); J06.9 Acute upper respiratory infection, unspecified; I13.2 Hypertensive heart and chronic kidney disease with heart failure and with stage 5 chronic kidney disease, or end stage renal disease; I25.10 Atherosclerotic heart disease of native coronary artery without angina pectoris; I50.9 Heart failure, unspecified; N18.6 End stage renal disease; E11.22 Type 2 diabetes mellitus with diabetic chronic kidney disease; E78.5 Hyperlipidemia, unspecified; E78.00 Pure hypercholesterolemia, unspecified; J44.9 Chronic obstructive pulmonary disease, unspecified; Z87.891 Personal history of nicotine dependence; Z79.899 Other long term (current) drug therapy; Z79.51 Long term (current) use of inhaled steroids; Z79.4 Long term (current) use of insulin; Z99.2 Dependence on renal dialysis; Z79.52 Long term (current) use of systemic steroids
CPT/HCPCS: 36415; 71046; 80053; 81003; 81015; 83605; 85025; 87040; 87804; 94760; 96365; A4217; J0696; J3490

== ENCOUNTER 2020-08-05 20:00 | Emergency (ER) | payer MEDICARE, MEDICAID ==
[2020-08-05] MEDS ORDERED: Acetaminophen 500 MG TAB ONE (20:36)
--- NOTE | 2020-08-05 21:06 | RAD ---
XR Chest Pa Lat STANDARD HISTORY: Fever and shortness of breath COMPARISON: 10/26/2019 FINDINGS: The heart size is normal. The lungs are well expanded without focal areas of consolidation, pneumothorax or pleural effusions. Postop changes and metallic hardware in the cervical spine are again seen. IMPRESSION: No radiographic evidence of acute cardiopulmonary process.
[2020-08-05 21:11] LABS: Anisocytosis SLIGHT = 6-15 cells (100X) (0-5/hpf); Band 13 % (5-11); Hemoglobin 11.6 g/dL (14.0-18.0); Lymphocytes 10 % (21-51); MDiff Complete? YES; Macrocytosis SLIGHT = 6-15 cells (100X) (0-5/hpf); Mean Corpuscular HGB CONC 30.8 g/dL (32.0-36.0); Mean Corpuscular Hemoglobin 32.5 pg (27.0-31.0); Mean Corpuscular Volume 105.8 fL (78.0-98.0); Mean Platelet Volume 5.9 fL (7.4-10.4); Monocytes 5 % (0-10); Neutrophil 72 % (42-75); Platelet Count 213 thou/uL (130-400); Platelet Morphology Comment Appears Adequate; RBC Distribution Width 13.1 % (11.5-14.5); Red Blood Cell (RBC) Count 3.57 mill/uL (4.70-6.10); Stomatocytes SLIGHT = 2-5 cells (100X) (0-1/hpf); White Blood Cell (WBC) Count 6.9 thou/uL (4.8-10.8)
[2020-08-05 21:12] LABS: ALT (SGPT) 49 U/L (8-55); AST (SGOT) 71 U/L (5-34); Albumin 4.5 g/dL (3.5-5.0); Alkaline Phosphatase 85 U/L (40-110); Anion Gap 20 mmol/L (10-20); BUN (Urea Nitrogen) 22 mg/dL (8.4-25.7); Bilirubin, Total 0.5 mg/dL (0.2-1.2); Calc. Creatinine Clearance 0 mL/min (70-130); Calcium 8.9 mg/dL (7.8-10.44); Carbon Dioxide 30 mmol/L (22-29); Chloride 90 mmol/L (98-107); Estimated GFR-MDRD 9; Globulin 3.7 g/dL (2.4-3.5); Glucose 223 mg/dL (70-105); Potassium 4.1 mmol/L (3.5-5.1); Protein, Total 8.2 g/dL (6.0-8.3); Sodium 136 mmol/L (136-145)
[2020-08-05] MEDS ORDERED: Sodium Chloride 0.9% 100 ML ONE (22:30)
[2020-08-05] MEDS ORDERED: Sodium Chloride 0.9% 250 ML 500 ML ONE (22:30)
[2020-08-05] MEDS ORDERED: Piperacillin/Tazobactam 2.25 GM VIAL ONE (22:31)
--- NOTE | 2020-08-05 22:47 | CT ---
CT CHEST WITHOUT CONTRAST: 08/05/20 HISTORY: Fever, cough. Dialysis patient. FINDINGS: Absence of IV contrast reduces the sensitivity of the exam particularly for evaluation of mediastinal , hilar, and vascular structures. There are vascular calcifications without evidence of aneurysmal dilatation of the thoracic aorta. No pleural or pericardial effusions are seen. No pneumothoraces, lobar consolidation are seen. There is a solid appearing 9 mm peripheral nodule in the anterior aspect of the right upper lobe. No acute os seous abnormalities are seen. There is bilateral gynecomastia. There are degenerative changes in the spine. Upper abdominal tomograms demonstrate cholelithiasis. IMPRESSION: 1. Indeterminate 9 mm right upper lobe nodule should be evaluated with PET scan. 2. Cholelithiasis. Code T Code LN POS: OFF
== END 2020-08-06 00:16 | disposition short-term general hospital (02) ==
LOC: MADERS 20:00
DX: A41.9 Sepsis, unspecified organism (principal); I25.10 Atherosclerotic heart disease of native coronary artery without angina pectoris; I13.2 Hypertensive heart and chronic kidney disease with heart failure and with stage 5 chronic kidney disease, or end stage renal disease; I50.9 Heart failure, unspecified; N18.6 End stage renal disease; E11.22 Type 2 diabetes mellitus with diabetic chronic kidney disease; E78.5 Hyperlipidemia, unspecified; E78.00 Pure hypercholesterolemia, unspecified; Z87.891 Personal history of nicotine dependence; J44.9 Chronic obstructive pulmonary disease, unspecified; Z79.899 Other long term (current) drug therapy; Z79.82 Long term (current) use of aspirin
CPT/HCPCS: 71046; 71250; 80053; 83605; 85025; 87040; 87804; 93005; 96365; 96367; J2543; J3370; J3490; J7050

== ENCOUNTER 2020-12-11 15:06 | Emergency (ER) | payer MEDICARE, MEDICAID ==
[2020-12-11] MEDS ORDERED: Sodium Chloride 0.9% 0 ML ONE (15:15)
[2020-12-11] MEDS ORDERED: Clindamycin 150 MG CAP ONE (15:30)
[2020-12-11] MEDS ORDERED: Silver Sulfadiazine 50 GM JAR ONE (15:30)
== END 2020-12-11 15:50 | disposition home or self-care (01) ==
LOC: MADERS 15:06
DX: T23.222A Burn of second degree of single left finger (nail) except thumb, initial encounter (principal); R20.2 Paresthesia of skin; E11.40 Type 2 diabetes mellitus with diabetic neuropathy, unspecified; I25.10 Atherosclerotic heart disease of native coronary artery without angina pectoris; I13.2 Hypertensive heart and chronic kidney disease with heart failure and with stage 5 chronic kidney disease, or end stage renal disease; I50.9 Heart failure, unspecified; N18.6 End stage renal disease; E78.5 Hyperlipidemia, unspecified; E11.22 Type 2 diabetes mellitus with diabetic chronic kidney disease; E78.00 Pure hypercholesterolemia, unspecified; J44.9 Chronic obstructive pulmonary disease, unspecified; Z87.891 Personal history of nicotine dependence; Z79.899 Other long term (current) drug therapy; Z79.82 Long term (current) use of aspirin
CPT/HCPCS: 16020; J7050

== ENCOUNTER 2020-12-26 09:21 | Emergency (ER) | payer MEDICARE ==
[2020-12-26] MEDS ORDERED: methylPREDNISolone Sod Succ/PF 125 MG/2 ML VIAL ONE (09:44)
[2020-12-26] MEDS ORDERED: Furosemide 40 MG/4 ML VIAL ONE ×2 (09:44→10:49)
[2020-12-26 09:57] LABS: #Basophils 0.1 thou/uL (0.0-0.2); #Eosinphils 0.1 thou/uL (0.0-0.7); #Lymphocytes 3.4 thou/uL (1.20-3.40); #Monocytes 0.7 thou/uL (0.11-0.59); #Neutrophils 11.5 thou/uL (1.40-6.50); %Basophils 0.5 % (0.0-1.0); %Eosinophils 0.8 % (0.0-10.0); %Lymphocytes 21.3 % (21.0-51.0); %Monocytes 4.3 % (0.0-10.0); %Neutrophils 73.1 % (42.0-75.0); Hemoglobin 9.7 g/dL (14.0-18.0); Mean Corpuscular Hemoglobin 30.2 pg (27.0-31.0); Mean Corpuscular Volume 100.8 fL (78.0-98.0); Mean Platelet Volume 6.5 fL (7.4-10.4); Platelet Count 369 thou/uL (130-400); RBC Distribution Width 15.2 % (11.5-14.5); Red Blood Cell (RBC) Count 3.22 mill/uL (4.70-6.10); White Blood Cell (WBC) Count 15.8 thou/uL (4.8-10.8)
[2020-12-26 10:06] LABS: ALT (SGPT) 35 U/L (8-55); AST (SGOT) 43 U/L (5-34); Albumin 4.6 g/dL (3.5-5.0); Alkaline Phosphatase 67 U/L (40-110); Anion Gap 23 mmol/L (10-20); BUN (Urea Nitrogen) 76 mg/dL (8.4-25.7); Bilirubin, Total 0.5 mg/dL (0.2-1.2); CK (CPK) 1365 U/L (30-200); Calc. Creatinine Clearance 0 mL/min (70-130); Calcium 8.1 mg/dL (7.8-10.44); Carbon Dioxide 27 mmol/L (22-29); Chloride 100 mmol/L (98-107); Globulin 3.7 g/dL (2.4-3.5); Glucose 147 mg/dL (70-105); Potassium 5.4 mmol/L (3.5-5.1); Protein, Total 8.3 g/dL (6.0-8.3); Sodium 145 mmol/L (136-145)
[2020-12-26 10:10] LABS: RBC Morphology Normal
[2020-12-26] MEDS ORDERED: Nitroglycerin 2% Ointment 1 INCH/1 GM Packet ONE (10:33)
== END 2020-12-26 11:06 | disposition short-term general hospital (02) ==
LOC: MADERS 09:21
DX: J81.0 Acute pulmonary edema (principal); R06.03 Acute respiratory distress; R74.8 Abnormal levels of other serum enzymes; I13.2 Hypertensive heart and chronic kidney disease with heart failure and with stage 5 chronic kidney disease, or end stage renal disease; E11.22 Type 2 diabetes mellitus with diabetic chronic kidney disease; I50.9 Heart failure, unspecified; N18.6 End stage renal disease; E78.00 Pure hypercholesterolemia, unspecified; N39.0 Urinary tract infection, site not specified; Z87.891 Personal history of nicotine dependence
CPT/HCPCS: 71045; 80053; 82550; 82553; 83880; 84484; 85025; 93005; 94640; 94760; 96374; 96375; 96376; J1940; J2930; J7620

== ENCOUNTER 2021-02-25 09:12 | Emergency (ER) | payer MEDICARE, MEDICAID ==
[2021-02-25] MEDS ORDERED: Dexamethasone 4 MG TAB ONE (09:43)
[2021-02-25] MEDS ORDERED: Loratadine 10 MG TAB ONE (09:43)
[2021-02-25] MEDS ORDERED: Bacitracin 1 PK ONE (09:43)
== END 2021-02-25 09:55 | disposition home or self-care (01) ==
LOC: MADERS 09:12
DX: J30.9 Allergic rhinitis, unspecified (principal); H61.23 Impacted cerumen, bilateral; Z48.00 Encounter for change or removal of nonsurgical wound dressing; E11.22 Type 2 diabetes mellitus with diabetic chronic kidney disease; I13.2 Hypertensive heart and chronic kidney disease with heart failure and with stage 5 chronic kidney disease, or end stage renal disease; I50.9 Heart failure, unspecified; N18.6 End stage renal disease; E78.5 Hyperlipidemia, unspecified; Z87.891 Personal history of nicotine dependence
CPT/HCPCS: 99283; J8540

== ENCOUNTER 2021-03-18 08:57 | Emergency (ER) | payer MEDICARE, MEDICAID | END 2021-03-18 09:30 | disposition home or self-care (01) | LOC: MADERS 08:57 | DX: J30.2 Other seasonal allergic rhinitis (principal); I25.10 Atherosclerotic heart disease of native coronary artery without angina pectoris; I13.2 Hypertensive heart and chronic kidney disease with heart failure and with stage 5 chronic kidney disease, or end stage renal disease; I50.9 Heart failure, unspecified; N18.6 End stage renal disease; E11.22 Type 2 diabetes mellitus with diabetic chronic kidney disease; Z99.2 Dependence on renal dialysis; E78.00 Pure hypercholesterolemia, unspecified; E78.5 Hyperlipidemia, unspecified; Z87.891 Personal history of nicotine dependence; Z79.899 Other long term (current) drug therapy; Z79.4 Long term (current) use of insulin | CPT/HCPCS: 99283 ==

== ENCOUNTER 2021-09-13 18:00 | Emergency (ER) | payer MEDICARE, MEDICAID ==
[2021-09-13] MEDS ORDERED: Ondansetron ODT 4 MG TAB ONE (19:02)
[2021-09-13] MEDS ORDERED: Loratadine 10 MG TAB ONE (19:02)
== END 2021-09-13 19:15 | disposition home or self-care (01) ==
LOC: MADERS 18:00
DX: J30.9 Allergic rhinitis, unspecified (principal); E11.9 Type 2 diabetes mellitus without complications; E78.5 Hyperlipidemia, unspecified; I13.2 Hypertensive heart and chronic kidney disease with heart failure and with stage 5 chronic kidney disease, or end stage renal disease; I50.9 Heart failure, unspecified; N18.6 End stage renal disease; Z99.2 Dependence on renal dialysis; J44.9 Chronic obstructive pulmonary disease, unspecified; Z87.891 Personal history of nicotine dependence
CPT/HCPCS: 99283; Q0162

== ENCOUNTER 2021-10-10 13:28 | Emergency (ER) | payer MEDICARE, MEDICAID ==
[2021-10-10] MEDS ORDERED: Ondansetron ODT 4 MG TAB ONE (13:57)
[2021-10-10 14:12] LABS: #Basophils 0.1 thou/uL (0.0-0.2); #Eosinphils 0.1 thou/uL (0.0-0.7); #Lymphocytes 1.7 thou/uL (1.20-3.40); #Monocytes 0.7 thou/uL (0.11-0.59); #Neutrophils 6.2 thou/uL (1.40-6.50); %Basophils 1.3 % (0.0-1.0); %Eosinophils 0.8 % (0.0-10.0); %Lymphocytes 19.7 % (21.0-51.0); %Monocytes 7.6 % (0.0-10.0); %Neutrophils 70.7 % (42.0-75.0); Hemoglobin 11.7 g/dL (14.0-18.0); Mean Corpuscular HGB CONC 31.4 g/dL (32.0-36.0); Mean Corpuscular Hemoglobin 32.3 pg (27.0-31.0); Mean Corpuscular Volume 102.9 fL (78.0-98.0); Mean Platelet Volume 6.2 fL (7.4-10.4); Platelet Count 302 thou/uL (130-400); RBC Distribution Width 12.6 % (11.5-14.5); Red Blood Cell (RBC) Count 3.62 mill/uL (4.70-6.10); White Blood Cell (WBC) Count 8.8 thou/uL (4.8-10.8)
[2021-10-10] MEDS ORDERED: Lidocaine Viscous Sol 2% 15 ml UD Cup ONE (14:29)
[2021-10-10] MEDS ORDERED: Mag-Al Plus 1200 MG/1200 MG/120 MG/30 ML UDCUP ONE (14:29)
[2021-10-10 14:32] LABS: ALT (SGPT) 33 U/L (8-55); AST (SGOT) 33 U/L (5-34); Albumin 4.7 g/dL (3.5-5.0); Alkaline Phosphatase 74 U/L (40-110); Anion Gap 20 mmol/L (10-20); BUN (Urea Nitrogen) 38 mg/dL (8.4-25.7); Bilirubin, Total 0.5 mg/dL (0.2-1.2); Calc. Creatinine Clearance 0 mL/min (70-130); Calcium 9.7 mg/dL (7.8-10.44); Carbon Dioxide 33 mmol/L (22-29); Chloride 90 mmol/L (98-107); Globulin 3.9 g/dL (2.4-3.5); Glucose 141 mg/dL (70-105); Lipase 24 U/L (8-78); Magnesium 3.2 mg/dL (1.6-2.6); Potassium 4.8 mmol/L (3.5-5.1); Protein, Total 8.6 g/dL (6.0-8.3); Sodium 138 mmol/L (136-145)
[2021-10-10 15:52] LABS: CKMB 30.5 ng/mL (0-6.6)
[2021-10-10 17:02] LABS: Troponin I 0.062 ng/mL (< 0.028)
[2021-10-11 12:01] LABS: SARS-CoV-2 PCR by NAA Not Detected (NotDetected)
== END 2021-10-10 17:19 | disposition home or self-care (01) ==
LOC: MADERS 13:28
DX: E83.41 Hypermagnesemia (principal); R77.8 Other specified abnormalities of plasma proteins; Z20.822 Contact with and (suspected) exposure to COVID-19; I13.2 Hypertensive heart and chronic kidney disease with heart failure and with stage 5 chronic kidney disease, or end stage renal disease; I50.9 Heart failure, unspecified; E11.9 Type 2 diabetes mellitus without complications; N18.6 End stage renal disease; E78.5 Hyperlipidemia, unspecified; E78.00 Pure hypercholesterolemia, unspecified; J44.9 Chronic obstructive pulmonary disease, unspecified; Z87.891 Personal history of nicotine dependence; Z79.899 Other long term (current) drug therapy
CPT/HCPCS: 36415; 80053; 82553; 83690; 83735; 84484; 85025; 93005; Q0162; U0003; U0005